=== PATIENT | female | born 1985 | race Caucasian/White ===

== ENCOUNTER 2022-01-11 19:52 | Inpatient (IN) ==
[2022-01-11] MEDS ORDERED: CARBOPROST TROMETHAMINE 250 MCG/ML AMP IM PRN (20:09)
[2022-01-11] MEDS ORDERED: TRANEXAMIC ACID 1,000 MG in SODIUM CHLORIDE 0.9% 100 ML IV PRN (20:09)
[2022-01-11] MEDS ORDERED: LACTATED RINGERS 500 ML IV PRN (20:09)
[2022-01-11] MEDS ORDERED: miSOPROStoL 200 MCG TABLET RECTAL PRN (20:09)
[2022-01-11] MEDS ORDERED: LACTATED RINGERS 250 ML IV ONE (20:09)
[2022-01-11] MEDS ORDERED: ONDANSETRON 4 MG/2 ML VIAL IV PRN (20:09)
[2022-01-11] MEDS ORDERED: OXYTOCIN/LR 20 UNIT/1,000 ML BAG IV ONE (20:09)
[2022-01-11] MEDS ORDERED: DINOPROSTONE 10 MG VAG.INSERT VAG ONE (21:00)
[2022-01-11 21:09] LABS: Basophils % 0.3 % (0.0-0.8); Eosinophils # 0.1 10*3/uL (0.0-0.87); Eosinophils % 0.7 % (0.00-10.9); Hematocrit 33.8 VOL% (35.7-47.0); Hemoglobin 11.5 GM/DL (12.0-16.0); Lymphocytes # 2.4 10*3/uL (1.4-4.0); Lymphocytes % 24.2 % (21.3-54.2); Mean Corpuscular Volume 94.7 FL (87-102); Mean Platelet Volume 10.5 FL (9.6-12.0); Monocytes # 0.7 10*3/uL (0.11-0.8); Monocytes % 6.6 % (1.7-12.7); Neutrophils % 67.2 % (38.7-73.9); Platelet Count 161 T/CUMM (130-400); Red Blood Count 3.57 MC/CUMM (3.8-5.5); Red Cell Distribution Width 15.2 % (9.3-17.3); White Blood Count 9.8 T/CUMM (4-12)
[2022-01-11 22:57] LABS: Bilirubin,Urine Negative (Negative); Blood, Urine Negative (Negative); Glucose,Urine (UA) Negative (Negative); Ketones,Urine Negative (Negative); Nitrite,Urine Negative (Negative); Protein,Urine Negative (Negative); Urine Appearance Clear (Clear); Urine Color Yellow (Yellow); Urine Urobilinogen 0.2 eU/dL (<2.0); Urine pH 7.5 (4.5-8.0)
[2022-01-11 23:00] LABS: Bacteria,Urine Occasional /HPF (Few); Mucus,Urine Occasional /LPF (Occasional); RBC,Urine 1 /HPF (0-4); Squamous Epithelial Cell,Urine Occasional /HPF (0-10)
[2022-01-12] MEDS: LACTATED RINGERS 1,000 ML IV SCH (12:26)
[2022-01-12] MEDS ORDERED: DINOPROSTONE 10 MG VAG.INSERT VAG ONE (19:30)
[2022-01-12] MEDS ORDERED: ZALEPLON 5 MG CAPSULE PO PRN (19:31)
[2022-01-13] MEDS ORDERED: MEPERIDINE 50 MG/1 ML VIAL IV PRN (02:14)
[2022-01-13] MEDS ORDERED: BUTORPHANOL 2 MG/ML VIAL IV PRN (02:14)
[2022-01-13] MEDS ORDERED: ACETAMINOPHEN 325 MG TABLET PO PRN ×2 (02:14→14:14)
[2022-01-13] MEDS ORDERED: TRANEXAMIC ACID 1,000 MG/10 ML VIAL ONE (07:22)
[2022-01-13] MEDS ORDERED: miSOPROStoL 200 MCG TABLET ONE (07:22)
[2022-01-13] MEDS ORDERED: METHYLERGONOVINE 0.2 MG/1 ML AMP ONE (07:22)
[2022-01-13] MEDS ORDERED: SODIUM CHLORIDE 0.9% 0 ML IV ONE (07:22)
[2022-01-13] MEDS ORDERED: OXYTOCIN/LR 20 UNIT/1,000 ML BAG IV ONE ×2 (07:22→14:14)
[2022-01-13] MEDS ORDERED: CARBOPROST TROMETHAMINE 250 MCG/ML AMP IM ONE (07:22)
[2022-01-13] MEDS ORDERED: FAMOTIDINE 20 MG/2 ML VIAL IV ONE (08:40)
[2022-01-13] MEDS ORDERED: CLINDAMYCIN INJ 900 MG/50 ML PREMIX IV ONE (08:40)
[2022-01-13] MEDS ORDERED: CITRIC ACID/SODIUM CITRATE 30 ML UDCUP PO ONE (08:40)
[2022-01-13] MEDS ORDERED: ONDANSETRON 4 MG/2 ML VIAL ONE (10:58)
[2022-01-13] MEDS ORDERED: BUPIVACAINE SPINAL 0.75% 2 ML AMP SPINAL ONE (10:58)
[2022-01-13] MEDS ORDERED: buprenorphine HCL 0.3 MG/ML VIAL ONE (10:58)
[2022-01-13] MEDS: LACTATED RINGERS 1,000 ML IV SCH (11:45)
[2022-01-13] MEDS ORDERED: LIDOCAINE 2% 5 ML VIAL ONE ×2 (11:55→12:54)
[2022-01-13] MEDS ORDERED: LACTATED RINGERS 1,000 ML IV ONE (12:54)
[2022-01-13] MEDS ORDERED: PHENYLEPHRINE 1 MG/10 ML SYRINGE IV ONE (12:59)
[2022-01-13] MEDS ORDERED: ePHEDrine 50 MG/ML VIAL ONE (13:06)
[2022-01-13] MEDS ORDERED: ACETAMINOPHEN INJ 1,000 MG/100 ML VIAL IV ONE (13:13)
[2022-01-13] MEDS ORDERED: KETOROLAC 30 MG/1 ML VIAL ONE (13:16)
[2022-01-13] MEDS: METHYLERGONOVINE 0.2 MG/1 ML AMP IM PRN ×2 (13:20→20:38)
[2022-01-13 13:34] LABS: Cord Arterial Blood HCO3 22.2 MMOL/L
[2022-01-13 13:37] LABS: Cord Venous Blood HCO3 22.7 MMOL/L; Cord Venous Blood PCO2 43.4 MMHG
[2022-01-13 13:39] LABS: Bilirubin,Urine Negative (Negative); Blood, Urine Small mg/dL (Negative); Glucose,Urine (UA) Negative (Negative); Ketones,Urine Negative (Negative); Nitrite,Urine Negative (Negative); Protein,Urine Negative (Negative); Urine Appearance Clear (Clear); Urine Color Yellow (Yellow); Urine Specific Gravity 1.015 (1.001-1.035); Urine Urobilinogen 0.2 eU/dL (<2.0)
[2022-01-13 13:41] LABS: Mucus,Urine Occasional /LPF (Occasional); RBC,Urine 1 /HPF (0-4)
[2022-01-13] MEDS ORDERED: IBUPROFEN 800 MG TABLET PO PRN (14:14)
[2022-01-13] MEDS ORDERED: SIMETHICONE CHEW 80 MG TABLET PO PRN (14:14)
[2022-01-13] MEDS ORDERED: RHO(D) IMMUNE GLOBULIN 300 MCG SYRINGE IM ONE (14:14)
[2022-01-13] MEDS ORDERED: ONDANSETRON 4 MG/2 ML VIAL IV PRN (14:14)
[2022-01-13] MEDS ORDERED: PROMETHAZINE 25 MG/1 ML VIAL IM ONE (15:12)
[2022-01-13] MEDS: KETOROLAC 30 MG/1 ML VIAL IV SCH (18:49)
[2022-01-13] MEDS: ACETAMINOPHEN 500 MG TABLET PO SCH (18:49)
[2022-01-13] MEDS: CLINDAMYCIN INJ 900 MG/50 ML PREMIX IV SCH (20:27)
[2022-01-13 22:31] LABS: Basophils % 0.1 % (0.0-0.8); Eosinophils % 0.1 % (0.00-10.9); Hematocrit 33.8 VOL% (35.7-47.0); Hemoglobin 11.4 GM/DL (12.0-16.0); Immature Granulocytes % 0.7 %; Lymphocytes # 1.8 10*3/uL (1.4-4.0); Lymphocytes % 11.6 % (21.3-54.2); Mean Corpuscular HGB Conc 33.7 GM/DL (32-36); Mean Corpuscular Volume 94.9 FL (87-102); Mean Platelet Volume 10.6 FL (9.6-12.0); Monocytes # 0.9 10*3/uL (0.11-0.8); Monocytes % 5.7 % (1.7-12.7); Neutrophils % 81.8 % (38.7-73.9); Platelet Count 140 T/CUMM (130-400); Red Blood Count 3.56 MC/CUMM (3.8-5.5); Red Cell Distribution Width 15.1 % (9.3-17.3); White Blood Count 15.4 T/CUMM (4-12)
[2022-01-14] MEDS: LACTATED RINGERS 1,000 ML IV SCH ×3 (01:00→03:32)
[2022-01-14] MEDS: KETOROLAC 30 MG/1 ML VIAL IV SCH ×2 (03:29→06:51)
[2022-01-14] MEDS: OXYTOCIN/LR 20 UNIT/1,000 ML BAG IV SCH ×2 (03:30→03:31)
[2022-01-14] MEDS: ACETAMINOPHEN 500 MG TABLET PO SCH (04:25)
[2022-01-14] MEDS: CLINDAMYCIN INJ 900 MG/50 ML PREMIX IV SCH (04:25)
[2022-01-14 05:02] LABS: Basophils % 0.2 % (0.0-0.8); Eosinophils % 0.3 % (0.00-10.9); Hematocrit 30.2 VOL% (35.7-47.0); Hemoglobin 9.9 GM/DL (12.0-16.0); Immature Granulocytes % 0.6 %; Immature Granulocytes Absolute 0.07 #; Lymphocytes # 2.3 10*3/uL (1.4-4.0); Lymphocytes % 18.9 % (21.3-54.2); Mean Corpuscular HGB Conc 32.8 GM/DL (32-36); Mean Corpuscular Volume 96.5 FL (87-102); Mean Platelet Volume 10.6 FL (9.6-12.0); Monocytes # 0.8 10*3/uL (0.11-0.8); Monocytes % 6.4 % (1.7-12.7); Neutrophils % 73.6 % (38.7-73.9); Platelet Count 126 T/CUMM (130-400); Red Blood Count 3.13 MC/CUMM (3.8-5.5); Red Cell Distribution Width 15.3 % (9.3-17.3)
[2022-01-14] MEDS: MULTIVITAMIN (PRENATAL) TABLET PO SCH (09:52)
[2022-01-14] MEDS: DOCUSATE SODIUM 100 MG CAPSULE PO SCH ×2 (09:53→20:44)
[2022-01-14] MEDS: MAGNESIUM HYDROXIDE SUSP 30 ML UDCUP PO PRN ×2 (09:53→20:44)
[2022-01-14] MEDS ORDERED: BISACODYL 10 MG SUPP RECTAL PRN (20:00)
[2022-01-15 08:09] VITALS: BP 123/76
[2022-01-15] MEDS: DOCUSATE SODIUM 100 MG CAPSULE PO SCH (08:42)
[2022-01-15] MEDS: MULTIVITAMIN (PRENATAL) TABLET PO SCH (08:42)
== END 2022-01-15 12:20 | disposition home or self-care (01) | DRG 788 ==
LOC: N.APWC 19:52 → N.LD 19:58 → N.OB 01-13 16:55
PROVIDERS: ADMIT Obstetrics & Gynecology; ATTEND Obstetrics & Gynecology
PROC: LDCSECT (ICD-10-PCS; 2022-01-13 12:30)